=== PATIENT | male | born 1995 | race Caucasian/White ===

== ENCOUNTER 2017-09-29 08:41 | Inpatient (IN) | payer BC, OTHER ==
[~2017-09-29] VITALS: Ht 162.6 cm; Wt 56.7 kg
[2017-09-29] MEDS ORDERED: ACETAMINOPHEN 325 MG TABLET PO PRN (13:30)
[2017-09-29] MEDS ORDERED: BUPRENORPHINE HCL 2 MG TAB.SUBL SL PRN (13:30)
[2017-09-29] MEDS ORDERED: MAGNESIUM HYDROXIDE 30 ML LIQUID UDC PO PRN (13:30)
[2017-09-29] MEDS ORDERED: ONDANSETRON 4 MG/2 ML VIAL IM PRN (13:30)
[2017-09-29] MEDS ORDERED: DICYCLOMINE HCL 20 MG TABLET PO PRN (13:30)
[2017-09-29] MEDS ORDERED: MAG HYDROX/AL HYDROX/SIMETH 30 ML LIQUID UDC PO PRN (13:30)
[2017-09-29] MEDS ORDERED: MIRALAX 17 GM POWD.PACK PO PRN (13:30)
[2017-09-29] MEDS ORDERED: ONDANSETRON ODT 4 MG TAB.RAPDIS SL PRN (13:30)
[2017-09-29] MEDS ORDERED: LOPERAMIDE HCL 2 MG CAPSULE PO PRN ×2 (13:30)
[2017-09-29] MEDS: METHOCARBAMOL 750 MG TABLET PO PRN (14:16)
[2017-09-29] MEDS: CLONIDINE HCL 0.1 MG TABLET PO PRN ×2 (14:17→22:00)
[2017-09-29] MEDS: HYDROXYZINE PAMOATE 25 MG CAPSULE PO PRN (14:17)
[2017-09-29 14:32] LABS: BASOPHILS # (AUTO) 0.1 K/uL (0.0-8.0); BASOPHILS % (AUTO) 0.4 % (0.0-2.0); EOSINOPHILS % (AUTO) 0.3 % (0.0-7.0); HEMATOCRIT 44.6 % (36.7-47.1); HEMOGLOBIN 15.4 g/dL (12.5-16.3); LYMPHOCYTES # (AUTO) 1.7 K/uL (20.0-40.0); LYMPHOCYTES % (AUTO) 14.2 % (20.5-74.5); MEAN CORPUSCULAR HEMOGLOBIN 30.1 uug (23.8-33.4); MEAN CORPUSCULAR HGB CONC 35 g/dL (32.5-36.3); MEAN CORPUSCULAR VOLUME 87.2 fL (73.0-96.2); MONOCYTES # (AUTO) 0.6 K/uL (2.0-10.0); MONOCYTES % (AUTO) 5.2 % (0-11); NEUTROPHILS # (AUTO) 9.5 K/uL (1.8-8.9); NEUTROPHILS % (AUTO) 79.9 % (31.5-64.5); PLATELET COUNT (AUTO) 262 K/uL (152-348); RED BLOOD CELL COUNT(AUTO) 5.11 MIL/uL (4.06-5.63); WHITE BLOOD COUNT (AUTO) 11.9 K/uL (3.6-10.2)
[2017-09-29 14:45] LABS: ALANINE AMINOTRANSFERASE 32 U/L (16-63); ALKALINE PHOSPHATASE 80 U/L (50-136); ASPARTATE AMINOTRANSFERASE 15 U/L (15-37); BILIRUBIN,TOTAL 0.8 mg/dL (0.2-1.0); CARBON DIOXIDE 31 mmol/L (21-32); CHLORIDE 104 mmol/L (98-107); CREATININE 0.9 mg/dL (0.6-1.3); GLUCOSE 94 mg/dL (74-106); MAGNESIUM 2.3 mg/dL (1.8-2.4); POTASSIUM 3.8 mmol/L (3.5-5.1); TOTAL PROTEIN, SERUM 7.8 g/dL (6.4-8.2); UREA NITROGEN, BLOOD 12 mg/dL (7-18)
[2017-09-29 15:34] LABS: ETHANOL < 3 MG/DL (0-0)
[2017-09-29 15:35] LABS: *CANNABINOID, URINE POSITIVE (NEGATIVE); *OPIATE, URINE NEGATIVE (NEGATIVE); *PHENCYCLIDINE SCREEN,URINE NEGATIVE (NEGATIVE)
[2017-09-29 15:46] LABS: *AMPHETAMINE, URINE NEGATIVE (NEGATIVE); *BARBITURATE, URINE NEGATIVE (NEGATIVE); *COCCAINE, URINE NEGATIVE (NEGATIVE)
[2017-09-29 16:00] VITALS: BP 132/83
[2017-09-29 20:00] VITALS: BP 127/74
[2017-09-29] MEDS: diphenhydrAMINE 50 MG CAPSULE PO PRN (22:00)
[2017-09-30 08:00] VITALS: BP 124/77
[2017-09-30] MEDS: BUPRENORPHINE HCL 2 MG TAB.SUBL SL SCH ×4 (08:30→20:47)
[2017-09-30] MEDS: MULTIVITAMINS,THERAPEUTIC TABLET PO SCH (08:30)
[2017-09-30 08:35] LABS: BASOPHILS # (AUTO) 0.1 K/uL (0.0-8.0); EOSINOPHILS # (AUTO) 0.2 K/uL (0.0-0.7); MEAN CORPUSCULAR HEMOGLOBIN 30.1 uug (23.8-33.4); MONOCYTES # (AUTO) 0.5 K/uL (2.0-10.0); MONOCYTES % (AUTO) 6.9 % (0-11)
[2017-09-30] MEDS: DOCUSATE SODIUM 250 MG CAPSULE PO SCH (08:37)
[2017-09-30 08:45] LABS: EOSINOPHILS % (AUTO) 2.4 % (0.0-7.0); HEMATOCRIT 43.4 % (36.7-47.1); HEMOGLOBIN 14.9 g/dL (12.5-16.3); LYMPHOCYTES # (AUTO) 2.7 K/uL (20.0-40.0); LYMPHOCYTES % (AUTO) 35.7 % (20.5-74.5); MEAN CORPUSCULAR HGB CONC 35 g/dL (32.5-36.3); MEAN CORPUSCULAR VOLUME 87.3 fL (73.0-96.2); PLATELET COUNT (AUTO) 219 K/uL (152-348); RED BLOOD CELL COUNT(AUTO) 4.97 MIL/uL (4.06-5.63); WHITE BLOOD COUNT (AUTO) 7.4 K/uL (3.6-10.2)
[2017-09-30] MEDS ORDERED: 5 DAY TAPER BUPRENORPHINE -SERENITY PROTOCOL SL PRN ×2 (09:00)
[2017-09-30] MEDS ORDERED: TUBERCULIN,PURIF.PROT.DERIV. 5 TU/0.1 ML TEST ID ONE (09:00)
[2017-09-30 12:14] VITALS: BP 118/70
[2017-09-30] MEDS: METHOCARBAMOL 750 MG TABLET PO PRN (12:43)
[2017-09-30 16:00] VITALS: BP 121/77
[2017-09-30 20:00] VITALS: BP 122/74
[2017-10-01] VITALS: BP 115/72
[2017-10-01 04:00] VITALS: BP 119/73
[2017-10-01 08:00] VITALS: BP 119/72
[2017-10-01] MEDS: MULTIVITAMINS,THERAPEUTIC TABLET PO SCH (08:53)
[2017-10-01] MEDS: BUPRENORPHINE HCL 2 MG TAB.SUBL SL SCH ×3 (08:54→21:08)
[2017-10-01] MEDS: DOCUSATE SODIUM 250 MG CAPSULE PO SCH (09:00)
[2017-10-01 12:00] VITALS: BP 130/80
[2017-10-01] MEDS: GABAPENTIN 300 MG CAPSULE PO SCH ×2 (14:03→21:08)
[2017-10-01 16:00] VITALS: BP 133/85
[2017-10-01 20:00] VITALS: BP 127/75
[2017-10-01] MEDS: BACLOFEN 10 MG TABLET PO SCH (21:08)
[2017-10-01] MEDS: CLONIDINE HCL 0.1 MG TABLET PO SCH (21:08)
[2017-10-01] MEDS: HYDROXYZINE PAMOATE 25 MG CAPSULE PO PRN (23:35)
[2017-10-01] MEDS: diphenhydrAMINE 50 MG CAPSULE PO PRN (23:35)
[2017-10-02] VITALS: BP 118/71
[2017-10-02 03:07] LABS: HEPATITIS B SURFACE AG Negative (Negative)
[2017-10-02 04:00] VITALS: BP 121/74
[2017-10-02 08:00] VITALS: BP 101/77
[2017-10-02] MEDS: CLONIDINE HCL 0.1 MG TABLET PO SCH ×2 (08:27→20:34)
[2017-10-02] MEDS: BACLOFEN 10 MG TABLET PO SCH ×3 (08:27→20:34)
[2017-10-02] MEDS: GABAPENTIN 300 MG CAPSULE PO SCH ×2 (08:27→14:09)
[2017-10-02] MEDS: MULTIVITAMINS,THERAPEUTIC TABLET PO SCH (08:27)
[2017-10-02] MEDS: DOCUSATE SODIUM 250 MG CAPSULE PO SCH (08:38)
[2017-10-02] MEDS ORDERED: BUPRENORPHINE HCL 2 MG TAB.SUBL SL SCH (09:00)
[2017-10-02] MEDS: ESCITALOPRAM OXALATE 10 MG TABLET PO SCH (10:23)
[2017-10-02 12:00] VITALS: BP 120/74
[2017-10-02] MEDS ORDERED: KETOROLAC TROMETHAMINE 30 MG INJ IM PRN (12:45)
[2017-10-02] MEDS: BUPRENORPHINE HCL 2 MG TAB.SUBL SL SCH ×2 (14:09→20:33)
[2017-10-02 16:00] VITALS: BP 132/63
[2017-10-02 20:00] VITALS: BP 148/88
[2017-10-02] MEDS ORDERED: GABAPENTIN 300 MG CAPSULE PO SCH (21:00)
[2017-10-02] MEDS: HYDROXYZINE PAMOATE 25 MG CAPSULE PO PRN (23:27)
[2017-10-02] MEDS: diphenhydrAMINE 50 MG CAPSULE PO PRN (23:27)
[2017-10-03] VITALS: BP 100/70
[2017-10-03 04:00] VITALS: BP 107/71
[2017-10-03 08:00] VITALS: BP 105/63
[2017-10-03] MEDS: BACLOFEN 10 MG TABLET PO SCH ×3 (08:08→20:30)
[2017-10-03] MEDS: MULTIVITAMINS,THERAPEUTIC TABLET PO SCH (08:08)
[2017-10-03] MEDS: BUPRENORPHINE HCL 2 MG TAB.SUBL SL SCH ×3 (08:08→20:30)
[2017-10-03] MEDS: GABAPENTIN 300 MG CAPSULE PO SCH ×3 (08:09→20:30)
[2017-10-03] MEDS: ESCITALOPRAM OXALATE 10 MG TABLET PO SCH (08:09)
[2017-10-03] MEDS: CLONIDINE HCL 0.1 MG TABLET PO SCH ×3 (08:09→20:30)
[2017-10-03 12:00] VITALS: BP 116/62
[2017-10-03 16:00] VITALS: BP 111/60
[2017-10-03 20:00] VITALS: BP 120/71
[2017-10-03] MEDS: IBUPROFEN 600 MG TABLET PO PRN (21:06)
[2017-10-03] MEDS: METHOCARBAMOL 750 MG TABLET PO PRN (23:56)
[2017-10-03] MEDS: HYDROXYZINE PAMOATE 25 MG CAPSULE PO PRN (23:57)
[2017-10-03] MEDS: diphenhydrAMINE 50 MG CAPSULE PO PRN (23:57)
[2017-10-04] VITALS: BP 122/77
[2017-10-04 04:00] VITALS: BP 114/74
[2017-10-04 08:00] VITALS: BP 109/52
[2017-10-04] MEDS: ESCITALOPRAM OXALATE 10 MG TABLET PO SCH (08:22)
[2017-10-04] MEDS: BACLOFEN 10 MG TABLET PO SCH ×3 (08:22→21:17)
[2017-10-04] MEDS: GABAPENTIN 300 MG CAPSULE PO SCH ×3 (08:23→21:17)
[2017-10-04] MEDS: MULTIVITAMINS,THERAPEUTIC TABLET PO SCH (08:23)
[2017-10-04] MEDS: CLONIDINE HCL 0.1 MG TABLET PO SCH ×3 (08:23→21:18)
[2017-10-04] MEDS ORDERED: BUPRENORPHINE HCL 2 MG TAB.SUBL SL SCH (09:00)
[2017-10-04 12:00] VITALS: BP 94/60
[2017-10-04 16:00] VITALS: BP 99/50
[2017-10-04] MEDS ORDERED: CLON0.1T14 PO (17:28)
[2017-10-04] MEDS ORDERED: DICY20TA28 PO (17:28)
[2017-10-04] MEDS ORDERED: IBUP-1955 PO (17:28)
[2017-10-04] MEDS ORDERED: METH-406 PO (17:28)
[2017-10-04] MEDS ORDERED: DIPH50CA37 PO (17:28)
[2017-10-04] MEDS ORDERED: HYDR-3895 PO (17:28)
[2017-10-04] MEDS ORDERED: GABA-534 PO (17:28)
[2017-10-04] MEDS: IBUPROFEN 600 MG TABLET PO PRN (18:37)
[2017-10-04 20:00] VITALS: BP 114/69
[2017-10-04] MEDS: HYDROXYZINE PAMOATE 25 MG CAPSULE PO PRN (22:16)
[2017-10-04] MEDS: diphenhydrAMINE 50 MG CAPSULE PO PRN (22:16)
[2017-10-05] VITALS: BP 110/54
[2017-10-05 08:14] VITALS: BP 118/62
[2017-10-05 08:22] VITALS: BP 118/62
[2017-10-05] MEDS: CLONIDINE HCL 0.1 MG TABLET PO SCH (08:22)
[2017-10-05] MEDS: MULTIVITAMINS,THERAPEUTIC TABLET PO SCH (08:22)
[2017-10-05] MEDS: GABAPENTIN 300 MG CAPSULE PO SCH (08:22)
[2017-10-05] MEDS: BACLOFEN 10 MG TABLET PO SCH (08:22)
[2017-10-05] MEDS ORDERED: ESCITALOPRAM OXALATE 10 MG TABLET PO SCH (09:00)
== END 2017-10-05 09:35 | disposition other institution (70) | DRG 895 ==
LOC: EDBD 12:40 → SRC 12:40
PROVIDERS: ADMIT Internal Medicine; ATTEND Internal Medicine
PROC: HZ2ZZZZ Detoxification Services for Substance Abuse Treatment (ICD-10-PCS; principal; 2017-09-29)
PROC: HZ41ZZZ Group Counseling for Substance Abuse Treatment, Behavioral (ICD-10-PCS; 2017-09-30)
PROC: HZ31ZZZ Individual Counseling for Substance Abuse Treatment, Behavioral (ICD-10-PCS; 2017-10-01)
DX: F11.23 Opioid dependence with withdrawal (principal); F32.1 Major depressive disorder, single episode, moderate; F12.10 Cannabis abuse, uncomplicated; F17.210 Nicotine dependence, cigarettes, uncomplicated; F90.9 Attention-deficit hyperactivity disorder, unspecified type; F41.9 Anxiety disorder, unspecified; Z91.5 Personal history of self-harm; G47.00 Insomnia, unspecified; D72.823 Leukemoid reaction
CPT/HCPCS: 36415; 70030-TC; 80307; 80349; 83735; 85025; 86580; 86592; 86705; 86803; 87340; 87806; 93005; A4663; G0480; J1885; Q0163